=== PATIENT | male | born 1990 | race Caucasian/White ===

== ENCOUNTER 2022-02-20 05:54 | Emergency (ER) | payer MEDICAID ==
[~2022-02-20] VITALS: Ht 175.3 cm; Wt 68.2 kg
[~2022-02-20 05:54] MED LIST: ESCI10TA PO; ESCI20TA PO; HYDR50TA65 PO
[2022-02-20 05:58] VITALS: BP 144/91
== END 2022-02-20 06:30 ==
LOC: ER 05:55
DX: S00.81XA Abrasion of other part of head, initial encounter (principal); X58.XXXA Exposure to other specified factors, initial encounter; Y93.89 Activity, other specified; Y92.89 Other specified places as the place of occurrence of the external cause; Y99.8 Other external cause status
CPT/HCPCS: 99284

== ENCOUNTER 2024-04-14 10:50 | Emergency (ER) | payer MEDICAID ==
[~2024-04-14] VITALS: Ht 177.8 cm; Wt 54.5 kg
[2024-04-14 11:30] VITALS: BP 130/90; PULSE 100; RESP 16; TEMP 97.2; O2SAT 98
== END 2024-04-14 11:32 | disposition home or self-care (01) ==
LOC: ER 10:50
DX: J34.89 Other specified disorders of nose and nasal sinuses (principal); Z79.899 Other long term (current) drug therapy; V89.2XXA Person injured in unspecified motor-vehicle accident, traffic, initial encounter; Y93.89 Activity, other specified; Y92.89 Other specified places as the place of occurrence of the external cause; Y99.8 Other external cause status
CPT/HCPCS: 99283